=== PATIENT | male | born 1995 | race African-American/Black ===

== ENCOUNTER 2022-05-20 09:55 | Emergency (ER) | payer OTHER, SELFPAY ==
--- NOTE | ~2022-05-20 | CT_ITS ---
EXAMINATION: CT abdomen pelvis wo con DATE: 05/20/2022 10:48 INDICATION: Hematuria TECHNIQUE: Computed tomography (CT) of the abdomen and pelvis was performed without intravenous contr ast. The dose-length product (DLP) was 516.56 mGy-cm. Automated exposure control and iterative recons truction technique were employed. COMPARISON: None FINDINGS: The lung bases are clear. The heart size is normal. The liver, spleen, pancreas, gallbladde r, and adrenal glands are normal. No stones are identified in the kidneys, ureters, or bladder. No hy dronephrosis or hydroureter. The kidneys are unremarkable. No pathologically enlarged abdominal or pe lvic lymph nodes are identified. There is no free intraperitoneal gas or evidence of bowel obstructio n. The appendix is normal. IMPRESSION: 1. No CT correlate for the patient's symptoms. Reviewed, dictated and finalized at location B. ICAL CORSETIER
[2022-05-20 09:56] VITALS: BP 120/85; PULSE 56; RESP 18; TEMP 36.5; O2SAT 97
[2022-05-20 10:33] LABS: Appearance Urine Clear (Clear); Bilirubin Urine Negative (Negative); Blood Urine 2+ (Negative); Color Urine Yellow (Yellow); Glucose Urine UA Negative (Negative); Ketones Urine Negative (Negative); Leukocyte Esterase Ur Negative LEU/UL (Negative); Nitrate Urine Negative (Negative); Protein Urine Negative (Negative); Urobilinogen Urine 0.2 mg/dL (<2.0)
[2022-05-20 10:35] LABS: Add Urine Microscopic? YES; Mucus Urine Rare /lpf; WBC Urine 0-3 /hpf
--- NOTE | 2022-05-20 11:37 | ED.GENADULT ---
HPI - General Adult General Chief complaint: Urogenital-Male Stated complaint: pain with urination Time Seen by Provider: 05/20/22 10:14 History of Present Illness HPI narrative: Patient is a 27-year-old male who presents ER with hematuria. Reports he was using the restroom this morning when he pinched his penis very hard to obstruct the flow and developed sharp pain in his penis. He then had blood in his urine after that. 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 Patient denies risk for STDs. After urinating after the blood he had some burning which concerned him. He went to an urgent care where they performed a urinalysis and told him he had no infection but they would send it for culture. Patient then opted to come here for further evaluation. Related Data Allergies Allergy/AdvReac Type Severity Reaction Status Date / Time No Known Allergies Allergy Verified 05/20/22 11:15 Review of Systems Constitutional: Constitutional: Denies chills and Denies fever(s) Gastrointestinal: Gastrointestinal: Denies abdominal pain, Denies nausea and Denies vomiting Genitourinary: Genitourinary: Reports hematuria, Reports dysuria, Denies penile discharge and Denies urinary frequency PMFSH Past Medical History Medical History (Updated 05/20/22 @ 17:48 by Russell Jarrett MD) Healthy adult male Surgical History Surgical History (Updated 05/20/22 @ 17:48 by Russell Jarrett MD) No pertinent past surgical history Social History Social History (Updated 05/20/22 @ 17:48 by Russell Jarrett MD) Smoking status: Never smoker Exam Narrative: GENERAL: Well-appearing, well-nourished, and in no acute distress. HEAD: Normocephalic, atraumatic. CHEST: Clear to auscultation. No respiratory distress. HEART: Regular rate and rhythm. Normal peripheral pulses. ABDOMEN: Soft, nontender, nondistended. EXTREMITIES: Normal range of motion. No edema. NEURO: Alert and oriented x3. PSYCH: Normal mood and affect. Course Course Emergency Course: Mild hematuria. No evidence of stone passage. Suspect very minor urethral injury. Discussed with urology who feels patient does not require follow-up and there is no additional inventions needed at this time as patient continues to have clear-colored urine and no additional pain Vital Signs Vital signs: Vital Signs Temperature 97.7 F 05/20/22 09:56 Pulse Rate 56 L 05/20/22 09:56 Respiratory Rate 18 05/20/22 09:56 Blood Pressure 120/85 05/20/22 09:56 Pulse Oximetry 97 05/20/22 09:56 Oxygen Delivery Room Air 05/20/22 09:56 Temperature 97.7 F 05/20/22 09:56 Pulse Rate 84 05/20/22 13:39 Respiratory Rate 16 05/20/22 13:39 Blood Pressure 135/76 05/20/22 13:39 Pulse Oximetry 98 05/20/22 13:39 Oxygen Delivery Room Air 05/20/22 09:56 Medical Decision Making Vital Signs Vital Signs: Vital Signs Temperature 97.7 F 05/20/22 09:56 Pulse Rate 56 L 05/20/22 09:56 Respiratory Rate 18 05/20/22 09:56 Blood Pressure 120/85 05/20/22 09:56 Pulse Oximetry 97 05/20/22 09:56 Oxygen Delivery Room Air 05/20/22 09:56 Temperature 97.7 F 05/20/22 09:56 Pulse Rate 84 05/20/22 13:39 Respiratory Rate 16 05/20/22 13:39 Blood Pressure 135/76 05/20/22 13:39 Pulse Oximetry 98 05/20/22 13:39 Oxygen Delivery Room Air 05/20/22 09:56 Lab Data Labs: Lab Results 05/20/22 Range/Units 10:17 Urine Color Yellow (Yellow) Urine Appearance Clear (Clear) Urine pH 6.0 (5.0-9.0) Ur Specific [place] 1.010 (1.001-1.035) Urine Protein Negative (Negative) mg/dL Urine Glucose (UA) Negative (Negative) mg/dL Urine Ketones Negative (Negative) mg/dL Ur Blood (Man) 2+ H (Negative) Urine Nitrate Negative (Negative) Urine Bilirubin Negative (Negative) Urine Urobilinogen 0.2 (<2.0) mg/dL Leukocyte Mari
[2022-05-20 13:39] VITALS: BP 135/76; PULSE 84; RESP 16; O2SAT 98
== END 2022-05-20 13:40 | disposition home or self-care (01) ==
PROVIDERS: Emergency Provider Emergency Medicine
DX: R31.9 Hematuria, unspecified (principal)
CPT/HCPCS: 74176; 81001; 99284

== ENCOUNTER 2022-06-12 19:15 | Emergency (ER) | payer OTHER, SELFPAY ==
[2022-06-12 19:21] VITALS: BP 143/77; PULSE 71; RESP 16; TEMP 37.5; O2SAT 100
--- NOTE | 2022-06-12 19:42 | ED.SKABFB ---
HPI - Skin/Abscess/Foreign Bdy General Chief complaint: Urogenital-Male Stated complaint: Skin Problem Source: patient and RN notes reviewed History of Present Illness HPI narrative: 27-year-old male presents urgent care with complaints of a small bump he noticed on his penis today. Patient states he has had this before and spoke to his urologist about it with no actual dx or workup. Patient has been evaluated for STDs approximately 3 times within the last 3 months with negative findings. Patient denies any penile discharge, dysuria, fevers, chills, or rash anywhere else. Patient is currently taking fluconazole because that is what is girlfriend was placed on for a yeast infection. Some parts of this dictation were generated by voice recognition software and may contain typographical and/or grammatical inaccuracies. Related Data Home Medications Medication Instructions Recorded Confirmed fluconazole 100 mg tablet 100 mg PO DAILY 06/12/22 06/12/22 Allergies Allergy/AdvReac Type Severity Reaction Status Date / Time No Known Allergies Allergy Verified 06/12/22 19:31 Review of Systems Review of Systems: CONSTITUTIONAL: Denies fever, chills, or sweats. EYES: Denies visual changes, redness, or discharge. ENT: Denies otalgia and sore throat CARDIOVASCULAR: Denies chest pain, palpitations, or edema. RESPIRATORY: Denies cough or dyspnea. GASTROINTESTINAL: Denies abdominal pain, nausea, vomiting, or diarrhea. GENITOURINARY: Denies dysuria or hematuria. SKIN: (2) bumps to shaft of penis MUSCULOSKELETAL: Denies back pain, joint pain, or myalgia. NEUROLOGIC: Denies headache, numbness, or weakness. [facility] Past Medical History Medical History (Updated 06/12/22 @ 19:43 by Sujey Chao APRN) Healthy adult male Surgical History Surgical History (Updated 05/20/22 @ 17:48 by Russell Jarrett MD) No pertinent past surgical history Social History Social History (Updated 05/20/22 @ 17:48 by Russell Jarrett MD) Smoking status: Never smoker Comments At the time of my signature, I reviewed and agree with the nursing past medical, surgical, social, and family history. There is no relevant family history pertinent to the patient complaint. Exam Narrative: GENERAL: This is a well-nourished, well-developed patient, in no apparent distress. HEAD: normocephalic, atraumatic. EYES: Sclera clear/white. Vision is grossly intact. EARS: External ears normal. Hearing grossly intact. NOSE: External nose normal with no obvious nasal discharge, nares without redness, no rhinorrhea. THROAT: Mucous membranes moist, posterior pharynx clear. NECK: Neck supple, non-tender without lymphadenopathy, masses or thyromegaly. CARDIOVASCULAR: Regular rate RESPIRATORY: No respiratory distress noted. SKIN: (2) Very fine, flesh-colored, papules noted to shaft of penis. no discharge. no erythrema. no blisters. NEURO: awake, alert, and oriented to person, place and time. There were no obvious focal neurologic abnormalities. Course Course Level of Care: Express Care Visit Vital Signs Vital signs: Vital Signs Temperature 99.5 F 06/12/22 19:21 Pulse Rate 71 06/12/22 19:21 Respiratory Rate 16 06/12/22 19:21 Blood Pressure 143/77 H 06/12/22 19:21 Pulse Oximetry 100 06/12/22 19:21 Oxygen Delivery Room Air 06/12/22 19:21 Temperature 99.5 F 06/12/22 19:21 Pulse Rate 71 06/12/22 19:21 Respiratory Rate 16 06/12/22 19:21 Blood Pressure 143/77 H 06/12/22 19:21 Pulse Oximetry 100 06/12/22 19:21 Oxygen Delivery Room Air 06/12/22 19:21 Reviewed MDM - Skin/Abscess/Foreign Bdy MDM Narrative Medical decision making narrative: Down Filler present during exam, Jayashree BROWNING. Differential Diagnosis Differential diagnosis: Likely viral exanthem, insect bites and other (STI) Critical Care Time Critical Care Time Critical Care Time: No Discharge Plan Discharge Clinical Impression: Well adult heal
== END 2022-06-12 19:45 | disposition home or self-care (01) ==
PROVIDERS: Emergency Provider Nurse Practitioner Family
DX: Z00.00 Encounter for general adult medical examination without abnormal findings (principal)
CPT/HCPCS: 99211; G0463